=== PATIENT | female | born 1975 | race Caucasian/White ===

== ENCOUNTER 2018-07-03 15:23 | Emergency (ER) | payer OTHER ==
[2018-07-03] MEDS ORDERED: SODIUM CHLORIDE 0.9% 500 ML IV ONE (15:41)
--- NOTE | 2018-07-03 15:45 | Emergency Department Record ---
History of Present Illness - General Chief Complaint: Abdominal Pain Stated Complaint: ABD PAIN Time Seen by Provider: 07/03/18 15:36 Source: Patient Mode of Arrival: Ambulatory Limitations: No limitations - History of Present Illness Initial Comments: The patient is here due to R lower AP for about 8 hours today. The pain is located in the RLQ and is sharp and stabbing and nonradiating. She denies any nausea, vomiting, diarrhea, dysuria, vaginal discharge or bleeding. She has no hx of similar issues or problems and her only abdominal surgery is having her GB removed. MD Complaint: Abdominal pain Onset/Timin -: Hour(s) Location: RLQ Radiation: None Migration to: No migration Quality: Aching, Sharp Consistency: Constant, Intermittent Improves With: Nothing Worsens With: Nothing Associated Symptoms: Chills, Fever - Related Data LMP Date: 07/02/18 Previous Rx's Medication Instructions Recorded Naproxen [Naprosyn] 500 mg PO BID #14 tablet. 07/03/18 Allergies Allergy/AdvReac Type Severity Reaction Status Date / Time Sulfa (Sulfonamide Allergy Severe HIVES Verified 07/03/18 15:35 Antibiotics) ciprofloxacin [From Cipro] Allergy Intermediate NAUSEA AND Verified 07/03/18 15: 35 VOMITING Travel Screening - Travel/Exposure Within Last 30 Days Have you traveled within the last 30 days?: No Review of Systems Constitutional: Denies: Chills, Fever Eyes: Denies: Eye discharge ENT: Denies: Congestion Respiratory: Denies: Cough, Dyspnea Past Medical History - SOCIAL HISTORY Smoking Status: Never smoker Alcohol Use: None Drug Use: None - RESPIRATORY Hx Respiratory Disorders: Yes Hx Asthma: Yes Hx Bronchitis: Yes - CARDIOVASCULAR Hx Cardio Disorders: No - NEURO Hx Neuro Disorders: No - GI Hx GI Disorders: Yes Hx Abdominal Pain: Yes Hx Reflux: Yes Hx Irritable Bowel: Yes - Hx Genitourinary Disorders: Yes Hx UTI: Yes - ENDOCRINE Hx Endocrine Disorders: No - MUSCULOSKELETAL Hx Musculoskeletal Disorders: Yes Hx Arthritis: Yes (knees) - PSYCH Hx Psych Problems: No - HEMATOLOGY/ONCOLOGY Hx Hematology/Oncology Disorders: Yes Hx Anemia: Yes Family Medical History Any Significant Family History?: Yes Hx Cancer: Mother Hx HTN: Father Physical Exam - General General Appearance: Alert, Oriented x3, Cooperative, No acute distress - Head Head exam: Atraumatic, Normocephalic - Eye Eye exam: Normal appearance - Neck Neck exam: Normal inspection, Full ROM. negative: Tenderness - Respiratory Respiratory exam: Normal lung sounds bilaterally. negative: Respiratory distress - Cardiovascular Cardiovascular Exam: Regular rate, Normal rhythm, Normal heart sounds - GI/Abdominal GI/Abdominal exam: Soft (obese.), Normal bowel sounds, Tenderness (There is mild RLQ tenderness.). negative: Distended, Guarding, Rebound, Rigid - Extremities Extremities exam: Normal inspection, Full ROM, Normal capillary refill. negative: Tenderness - Neurological Neurological exam: Alert, Normal gait. negative: Abnormal gait, Motor sensory deficit Course Vital Signs 07/03/18 15:29 Temperature 98.1 F Pulse Rate 84 Respiratory 16 Rate Blood Pressure 128/84 Pulse Ox 99 - Reevaluation(s) Reevaluation #1: The patient is doing better at this time. She is feeling better with less pain and discomfort and her repeat temp is 97.5 orally. There is still some mild pain with walking. On exam her abdomen is very soft with only very mild LLQ tenderness. I did explain to the patient that her evaluation was all neg for any acute process. We will discharge her to home and have her see her PCP next week for recheck. 07/03/18 17:34 Medical Decision Making - Data Complexity MDM Data: Labs Ordered and/or Reviewed, X-Ray Ordered and/or Reviewed - Lab Data Result diagrams: 07/03/18 15:50 07/03/18 15:50 - Radiology Data Radiology results: Report reviewed (Abd CT: Neg for any acute process.) Disposition Disposition: Discharge Clinical Impression: Abdominal pain Qualifiers: Abdominal location: right lower quadrant Qualified Code(s): R10.31 - Right lower quadrant pain Disposition: Home, Self-Care Condition: (2) Stable Instructions: Abdominal Pain (ED) Additional Instructions: Please drink plenty of fluids and take Naprosyn for pain. Please see your family doctor next week if not better. Return to the ER in the morning for any persistent or worsening pain, or any fever, or vomiting. Prescriptions: Naproxen [Naprosyn] 500 mg PO BID #14 tablet.dr Forms: Patient Portal Access Time of Disposition: 17:38 Quality - Quality Measures Quality Measures: N/A - Blood Pressure Screening View Details: Yes Does Patient Have Any of the Following: No Blood Pressure Classification: Pre-Hypertensive BP Reading Systolic Measurement: 128 Diastolic Measurement: 84 Screening for High Blood Pressure: < Pre-Hypertensive BP, F/U Documented > [ [id number]] Pre-Hypertensive Follow-up Interventions: Referral to alternative/primary care provider.
[2018-07-03 15:56] LABS: URINE APPEARANCE CLEAR; URINE BILIRUBIN NEGATIVE (NEGATIVE); URINE BLOOD MODERATE (NEGATIVE); URINE COLOR YELLOW; URINE GLUCOSE (UA) NEGATIVE (NEGATIVE); URINE KETONE NEGATIVE (NEGATIVE); URINE LEUKOCYTE ESTERASE NEGATIVE (NEGATIVE); URINE NITRITE NEGATIVE (NEGATIVE); URINE PROTEIN NEGATIVE (NEGATIVE); URINE UROBILINOGEN 0.2 E.U./dL (0.20 - 1.00)
[2018-07-03 15:58] LABS: BASO % 0.2 % (0-6); EOS % 5.8 % (0-6); GRAN % 65.4 % (47-80); HEMATOCRIT 39.5 % (35.0-47.0); HEMOGLOBIN 13.3 gm/dl (11.6-16.0); LYMPH % 21.5 % (16-45); MEAN CORPUSCULAR HEMOGLOBIN 29.6 pg (27-33); MEAN CORPUSCULAR HGB CONC 33.7 g/dl (32-36); MEAN PLATELET VOLUME 9.7 fl (7.4-10.4); MONO % 7.1 % (0-9); PLATELET COUNT 291 K/uL (130-400); RED BLOOD COUNT 4.49 M/uL (3.80-5.40); RED CELL DISTRIBUTION WIDTH 13.1 % (11.5-14.5); WHITE BLOOD COUNT W/O DIFF 9.9 K/uL (4.2-12.2)
[2018-07-03 16:05] LABS: URINE EPITHELIAL CELLS 0 - 2 (FEW); URINE WBC 0 - 2 (0-2/hpf)
[2018-07-03 16:09] LABS: BLOOD UREA NITROGEN 12 mg/dL (6-20); CREATININE 1.1 mg/dL (0.5-0.9); EST GLOMERULAR FILTRATION RATE 58 mL/min
[2018-07-03] MEDS ORDERED: KETOROLAC 30 MG/ML VIAL IVP ONE (16:09)
[2018-07-03 16:10] LABS: LIPASE 52 U/L (13-60); TOTAL PROTEIN 6.4 g/dL (6.6-8.7)
[2018-07-03 16:12] LABS: GLUCOSE,RANDOM 100 mg/dL (74-109)
[2018-07-03 16:14] LABS: ALT/SGPT 17 U/L (<33)
[2018-07-03 16:15] LABS: ALBUMIN 4.3 g/dL (4.0-5.0); ALKALINE PHOSPHATASE 62 U/L (35-104); AST/SGOT 14 U/L (10.0-35.0)
[2018-07-03 16:18] LABS: BILIRUBIN,DIRECT < 0.2 mg/dL (0-0.3)
--- NOTE | 2018-07-07 09:49 | CT SCAN REPORT ---
EXAM: CT OF THE ABDOMEN AND PELVIS WITHOUT CONTRAST HISTORY: RIGHT LOWER QUADRANT ABDOMINAL PAIN SINCE AWAKENING THIS MORNING, BLOATING AND FEVER. PRIOR CHOLECYSTECTOMY. TECHNIQUE: Axial CT scan of the abdomen and pelvis was performed without oral or IV contrast at the referring physician's request. Comparison: CT abdomen and pelvis 06/09/14. FINDINGS: There are bibasilar calcified granulomas in the posterior costophrenic angles as before as well as some tiny calcified foci in the spleen consistent with tiny calcified splenic granulomas. Surgical clips in the gallbladder fossa as before consistent with the history provided of cholecystectomy. No intrarenal calculi or hydronephrosis identified on either side. No hydroureter is seen on either side as well. As such it is somewhat difficult to follow the entire course of both ureters in their nondilated state throughout the retroperitoneum and pelvis, but no definite ureteral calculus seen on either side and no bladder calculus evident. Evaluation of the bowel and viscera is extremely limited without oral or IV contrast. Given this limitation, no definite hepatic, splenic, adrenal, pancreatic, or renal mass identified. I believe the appendix is identified as a normal caliber structure with no appendicitis evident. A metallic T-shaped density previously seen in the uterus, presumably an IUD, is no longer apparent and has presumably been removed in the interval. Tiny umbilical hernia containing adipose tissue, but no bowel. No free intraperitoneal air or free intraperitoneal fluid identified. Some hypertrophic spurring particularly in the lower thoracic spine. IMPRESSION: 1. NO DEFINITE URINARY TRACT CALCULI OR HYDRONEPHROSIS EVIDENT. 2. THE APPENDIX APPEARS NEGATIVE. NO FREE AIR 0R FREE FLUID EVIDENT. 3. POSTOP CHOLECYSTECTOMY. 4. PREVIOUSLY SEEN IUD HAS APPARENTLY BEEN REMOVED SINCE 06/09/14. 5. BIBASILAR CALCIFIED GRANULOMAS WITH TINY CALCIFIED SPLENIC GRANULOMAS BEFORE. JOB NUMBER: [id number] [facility]
== END 2018-07-03 17:54 | disposition home or self-care (01) ==
LOC: ER 15:23
DX: R10.31 Right lower quadrant pain (principal)
CPT/HCPCS: 99284 ×2; 96374; 83690; 85025; 80076; 80048; 81001; 84703; 74176; J1885